=== PATIENT | male | born 1970 | race Caucasian/White ===

== ENCOUNTER 2018-07-09 06:00 | Emergency (ER) | payer BC, SELFPAY ==
[2018-07-09 06:10] VITALS: BP 104/66; PULSE 80; RESP 18; TEMP 36.3; O2SAT 98; BMI 26.4
--- NOTE | 2018-07-09 07:44 | ED_ITS ---
HPI - Eye Problem General Chief complaint: Eye Problems Stated complaint: right eyelid hurts; red and swollen Time Seen by Provider: 07/09/18 07:22 Source: patient Mode of arrival: ambulatory History of Present Illness HPI Narrative: Patient presents the emergency department complaining of right upper eyelid pain and swelling and redness that just started this morning. He states he was fine yesterday. Patient denies any pain the globe itself. No irritation the conjunctiva. No injection. No drainage. No visual changes. Patient does not wear corrective lenses. He states he was totally fine yesterday. No fevers. No recent illnesses. No lesions anywhere else. No other complaints this time. Review of Systems Review of Systems ROS Unobtainable: All systems reviewed & are unremarkable except as noted in HPI and below Constitutional Denies chills, Denies fever(s), Denies lethargy and Denies weakness Eyes Denies change in vision, Denies eye discharge, Denies irritation and Denies loss of vision Comments: Eyelid swelling ENT Ears, Nose, Mouth, and Throat: Denies change in voice, Denies neck pain and Denies sore throat Cardiovascular Denies chest pain, Denies irregular heart rhythm, Denies lightheadedness, Denies palpitations, Denies dyspnea, Denies dyspnea on exertion and Denies orthopnea Respiratory Denies cough, Denies dyspnea, Denies dyspnea on exertion and Denies wheezing Gastrointestinal Gastrointestinal: Denies abdominal pain, Denies change in bowel habits, Denies diarrhea, Denies nausea and Denies vomiting Genitourinary Denies hematuria, Denies flank pain, Denies urinary incontinence and Denies urinary urgency Musculoskeletal Denies neck pain Integumentary/Breasts Denies pruritus, Denies erythema, Denies rash and Denies wounds Neurologic Denies confusion, Denies loss of vision and Denies weakness Psychiatric Denies anxiety, Denies confusion, Denies depression, Denies homicidal ideation and Denies suicidal ideation Endocrine Denies palpitations Hematologic/Lymphatic Denies easy bruising Allergic/Immunologic Denies wheezing PFSH Medical History Healthy adult (Acute) Surgical History No pertinent past surgical history (Acute) Social History Smoking Status: Never smoker Social History Smoking Status: Never smoker Exam Initial Vital Signs Initial Vital Signs: Vital Signs Temperature 97.3 F L 07/09/18 06:10 Pulse Rate 80 07/09/18 06:10 Respiratory Rate 18 07/09/18 06:10 Blood Pressure 104/66 07/09/18 06:10 Pulse Oximetry 98 07/09/18 06:10 Const General: cooperative and well developed Nutritional Appearance: well nourished Orientation: alert, awake, oriented x3 and not confused [facility] Head: normocephalic and atraumatic Ears: external ears normal Nose: external nose normal and No nasal discharge Face and sinus: face symmetric and No dry mucous membranes Mouth: oral mucosae normal and moist mucous membranes Teeth and gingiva: dentition normal Eyes General: appearance normal, both eyes and all related structures Eyelids: eyelid abnormality right upper eyelid (Very very mild swelling very very mild erythema medial 3rd of the eyelid edge. Minimal tenderness. No induration or distinct lesion/bump) Conjunctivae: conjunctivae normal Sclera: sclerae normal Pupils: PERRL EOM: EOM intact bilaterally Neck Neck: normal visual inspection, trachea midline, No lymphadenopathy, No midline deformity and No JVD Lymphatic: No lymphedema Chest Chest: normal inspection of the chest Resp Effort & Inspection: normal respiratory effort, able to speak in complete sentences, no respiratory distress and no use of accessory muscles Back/Spine/Pelvis Cervical Spine: cervical ROM normal and No pain with cervical ROM Thoracic/Lumbar Spine: thoracic and lumbar spine normal to inspection Skin General: no rashes or lesions noted, No jaundice and No petechiae Neuro General: alert, oriented x3, gait normal and no focal motor deficits Speech: speech normal Extrem General: full ROM, no clubbing, cyanosis or edema, no pedal edema and no calf tenderness Psych Appearance: well kempt Mental Status: mental status grossly normal Attitude: cooperative Thought Content: normal and suicidality Judgment: judgment good Course Course Narrative: I discussed with the patient that at this point, the symptoms are very early and mild, and it is hard to tell whether he had a very minor trauma in the night that caused some irritation to his eyelid, or if he is on the early and a stye. I have discussed with him that the former is true, then his symptoms will resolve on their own within the next day or so without further incident. If the latter is true, then I have discussed the symptoms of a stye, and the need for hot packing and the size. We have discussed that oral antibiotics are unlikely to be helpful if a stye does develop. I have referred him to Ophthalmology for follow-up, should he have further concerns. At this time, symptoms are minimal, and patient is stable for discharge home. Vital Signs - 8 hr 07/09/18 06:10 Temperature 97.3 F L Pulse Rate 80 Respiratory Rate 18 Blood Pressure 104/66 Pulse Oximetry 98 MDM - Eye Problem Medical Records Attestation: I reviewed the patient's medical records. Discharge Plan Departure Patient Disposition: Home Clinical Impression: [facility] Instructions: DI for [facility] Activity Restrictions/Additional Instructions: Your eyelid swelling could represent an early stye, or just an area of inflammation and irritation from a minor trauma and the night. If the latter is the case, the symptoms should resolve the next day or so. If this is a stye , it will turn into a distinct bump which will resolve over the ensuing weeks. You can help this process by using hot packing and massage the area, as we have discussed. Referrals: [facility] [Provider Group]
[2018-07-09 07:59] VITALS: BP 111/74; PULSE 73; RESP 18; TEMP 36.3; O2SAT 100
== END 2018-07-09 07:46 | disposition home or self-care (01) ==
PROVIDERS: Emergency Provider Emergency Medicine
DX: H00.011 Hordeolum externum right upper eyelid (principal)
CPT/HCPCS: 99283